=== PATIENT | male | born 1950 | race Asian ===

== ENCOUNTER 2019-07-31 12:32 | Emergency (ER) | payer OTHER ==
[~2019-07-31] VITALS: Ht 185.4 cm; Wt 88.5 kg
[2019-07-31 13:08] VITALS: BP 119/64; TEMP 98
== END 2019-07-31 13:09 | disposition home or self-care (01) ==
LOC: ED 12:32
DX: Z48.03 Encounter for change or removal of drains (principal)
CPT/HCPCS: 99282